=== PATIENT | female | born 1995 | race Caucasian/White ===

== ENCOUNTER 2017-08-22 20:36 | Emergency (ER) | payer MEDICAID ==
[2017-08-22 20:39] VITALS: BP 113/64; PULSE 118; RESP 16; TEMP 99.7; O2SAT 97
[2017-08-22 21:06] VITALS: BP 105/66; PULSE 111; RESP 16; O2SAT 97
[2017-08-22] MEDS ORDERED: methylPREDNISolone SOD SUCC 125 MG/2 ML VIAL IV PUSH ONE (21:15)
[2017-08-22] MEDS ORDERED: SODIUM CHLOR 0.9% 1000 ML INJ 1,000 ML IV ONE (21:15)
[2017-08-22] MEDS ORDERED: KETOROLAC TROMETHAMINE 30 MG/ML (IVP) VIAL IV PUSH ONE (21:15)
[2017-08-22] MEDS ORDERED: RESP: ALBUTEROL 2.5 MG/IPRATROPIUM 0.5 MG NEB (SCH) NEB ONE (21:15)
[2017-08-22] MEDS ORDERED: OSELTAMIVIR PHOSPHATE 75 MG CAP PO ONE (22:30)
[2017-08-22] MEDS ORDERED: OSEL75 PO (22:34)
[2017-08-22] MEDS ORDERED: MEDR4PAK PO (22:34)
--- NOTE | 2017-08-22 22:35 | PD ---
HPI . Cold/flu symptoms Chief Complaint: Cold / Flu Symptoms Time Seen by Provider: 20:53 Travel History International Travel<30 days: No Contact w/Intl Traveler<30days: No Traveled to known affect area: No History of Present Illness HPI 22-year-old female witha past medical history complains of aches pains and chills, slight burning upon respiration, generalized malaise over the past day. Patient denies any quantified fever, denies any production of cough, headache , stiff neck, rashes, dysuria frequency frequency. No significant travel history. PFSH Past Medical History Narrative Medical Past medical history reviewed Diminished Hearing: No Genitourinary: Yes (polynephritis) Tetanus Vaccination: Unknown Influenza Vaccination: No ?: Not LMP: 08/07/17 Past Surgical History Section: Yes Gynecologic Surgery: Yes Social History Alcohol Use: Yes (occasionally) Tobacco Use: No Substance Use: No Allergies-Medications (Allergen,Severity, Reaction): Coded Allergies: No Known Allergies (Unverified , 08/22/17) Reported Meds & Prescriptions Reported Meds & Active Scripts Active No Active Prescriptions or Reported Medications Narrative Medication Allergies and medications reviewed Review of Systems Except as stated in HPI: all other systems reviewed are Neg General / Constitutional: Positive: Fever, Chills Eyes: No: Visual changes HENT: No: Headaches Cardiovascular: No: Chest Pain or Discomfort Respiratory: No: Shortness of Breath Gastrointestinal: No: Abdominal Pain Genitourinary: No: Dysuria Musculoskeletal: Positive: Myalgias, Arthralgias, No: Pain Skin: No Rash Neurologic: No: Weakness Psychiatric: No: Depression Endocrine: No: Polydipsia Hematologic/Lymphatic: No: Easy Bruising Physical Exam Narrative GENERAL: Awake alert oriented 3 no acute distress SKIN: Warm and dry. Color is normal no diaphoresis cyanosis or pallor HEAD: Atraumatic. Normocephalic. EYES: Pupils equal and round. No scleral icterus. No injection or drainage. ENT: No nasal bleeding or discharge. Mucous membranes pink and moist. NECK: Trachea midline. No JVD. Supple full range motion CARDIOVASCULAR: Regular rate and rhythm. S1-S2 no murmurs rubs or gallops RESPIRATORY: No accessory muscle use. Clear to auscultation. Breath sounds equal bilaterally. Slightly prolonged respiratory phase with forced exhalation. Deep breath and breath holding forces patient to cough GASTROINTESTINAL: Abdomen soft, non-tender, nondistended. Hepatic and splenic margins not palpable. MUSCULOSKELETAL: Extremities without clubbing, cyanosis, or edema. No obvious deformities. NEUROLOGICAL: Awake and alert. No obvious cranial nerve deficits. Motor grossly within normal limits. Five out of 5 muscle strength in the arms and legs. Normal speech. PSYCHIATRIC: Appropriate mood and affect; insight and judgment normal. Data Data Last Documented VS Vital Signs Date Time Temp Pulse Resp B/P (MAP) Pulse Ox O2 Delivery O2 Flow Rate FiO2 08/22/17 21:06 111 16 105/66 (79) 97 Room Air 08/22/17 20:39 99.7 Orders Orders Iv Access Insert/Monitor (08/22/17 21:14) Influenzae A/B Antigen (08/22/17 21:14) Sodium Chlor 0.9% 1000 Ml Inj (Ns 1000 M (08/22/17 21:15) Ketorolac Inj (Toradol Inj) (08/22/17 21:15) Methylprednisolone So Succ Inj (Solumedr (08/22/17 21:15) Albuterol-Ipratropium Neb (Duoneb Neb) (08/22/17 21:15) Oseltamivir (Tamiflu) (08/22/17 22:30) MDM Medical Decision Making Medical Screen Exam Complete: Yes Emergency Medical Condition: Yes Medical Record Reviewed: Yes Differential Diagnosis Influenza, upper respiratory infection, viral syndrome Narrative Course Influenza test positive. Patient feels improved after DuoNeb treatment, IV fluids, and IV Toradol. Diagnosis Primary Impression: Influenza Patient Instructions: General Instructions, Influenza (DC) Additional Instructions: Tamiflu 75 mg twice daily for 5 days. Medrol Dosepak as prescribed. Motrin/ Tylenol/[id number] cold and flu preparations as directed. Drink plenty of fluids Follow-up with your doctor. Return for worsening Scripts Methylprednisolone Dosepak (Medrol Dosepak) 4 Mg Dspk 4 MG PO DIRECTED, #1 DSPK 0 Refills Per Pharmacist direction Prov: Simone Perry MD 08/22/17 Oseltamivir (Tamiflu) 75 Mg Cap 75 MG PO BID for Mgmt Viral Infection for 5 Days, #10 CAP 0 Refills Prov: Simone Perry MD 08/22/17 Disposition: 01 DISCHARGE HOME Condition: Stable Simone Perry MD Aug 22, 2017 22:35
[2017-08-22 22:37] VITALS: BP 100/57; PULSE 102; RESP 18; O2SAT 98
== END 2017-08-23 00:22 | disposition home or self-care (01) ==
LOC: NEPC 20:36
DX: J11.1 Influenza due to unidentified influenza virus with other respiratory manifestations (principal)
CPT/HCPCS: 87804; 94664; 96361; 96374; 96375; 99284; J1885; J2930; J7030